=== PATIENT | male | born 1965 | race Caucasian/White ===

== ENCOUNTER → 2024-01-20 | Outpatient (BNVA) | payer OTHER, SELFPAY | END | disposition home or self-care (01) | PROVIDERS: PCP Nurse Practitioner Family; Referring Provider Nurse Practitioner Family; Visit Provider Urology | DX: C64.2 Malignant neoplasm of left kidney, except renal pelvis (principal); N40.1 Benign prostatic hyperplasia with lower urinary tract symptoms; N13.8 Other obstructive and reflux uropathy; Z90.5 Acquired absence of kidney; G70.00 Myasthenia gravis without (acute) exacerbation; N28.1 Cyst of kidney, acquired; Z80.42 Family history of malignant neoplasm of prostate | CPT/HCPCS: 81003; 99212; G0463 ==

== ENCOUNTER → 2024-05-01 | Outpatient (CLI) | payer OTHER, SELFPAY ==
--- NOTE | 2024-05-01 09:00 | XR_ITS ---
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 CTDI: vol (mGy) 15.6 DLP: (mGycm) 946 Technique: Multiple axial sections of the abdomen and pelvis have been obtained. 64 slice high-resolution scanner used. 3 mm axial sections have been obtained, post intravenous injection 60 cc [id number] 2-D sagittal, coronal reconstructions obtained. Low dose protocols were performed. One or more of the following dose reduction techniques were used; automated exposure control, adjustment of the mA and/or KV according to patient size, use of iterative reconstruction technique. Findings: Subcentimeter probable liver cysts Contracted gallbladder Spleen not enlarged Absent right kidney Partial left nephrectomy No enhancing left renal mass lesion Normal appendix No abdominal or pelvic lymphadenopathy Urinary bladder wall thickening up to 12 mm Fat-containing inguinal hernias Grade 1 spondylolisthesis L5 on S1 IMPRESSION: No interval metastatic disease
--- NOTE | 2024-05-01 09:13 | XR_ITS ---
Examination: PA lateral chest 2 views TECHNIQUE: Upright PA lateral chest 2 views Exam date and time: May 01, 2024 1027 hours INDICATIONS: Diagnosis malignant neoplasm kidney FINDINGS: Mild prominence left ventricle No pneumonia or pulmonary edema No pulmonary nodules IMPRESSION: No active disease
== END | disposition home or self-care (01) ==
LOC: CCTX 09:06
PROVIDERS: PCP Nurse Practitioner Family; Referring Provider Urology; Visit Provider Urology
DX: C64.2 Malignant neoplasm of left kidney, except renal pelvis (principal)
CPT/HCPCS: 71046; 74177; A4649; Q9967

== ENCOUNTER → 2024-07-10 | Outpatient (BNVA) | payer OTHER, SELFPAY | END | disposition home or self-care (01) | PROVIDERS: PCP Nurse Practitioner Family; Referring Provider Nurse Practitioner Family; Visit Provider Urology | DX: C64.2 Malignant neoplasm of left kidney, except renal pelvis (principal); N40.0 Benign prostatic hyperplasia without lower urinary tract symptoms; Z90.5 Acquired absence of kidney; G70.00 Myasthenia gravis without (acute) exacerbation; N28.1 Cyst of kidney, acquired | CPT/HCPCS: 81003; 99212; G0463 ==